=== PATIENT | female | born 1950 | race African-American/Black ===

== ENCOUNTER 2021-04-21 15:56 | Emergency (ER) | payer MEDICARE, MEDICAID ==
[~2021-04-21] VITALS: Ht 170.2 cm; Wt 102.1 kg
[2021-04-21] MEDS ORDERED: MYBETRIQ (16:04)
[2021-04-21] MEDS ORDERED: COZAAR 25 MG TA25 M1 PO (16:04)
[2021-04-21] MEDS ORDERED: COLACE100 MG PO (17:08)
[2021-04-21] MEDS ORDERED: TUCKS1 EAC1 TOP (17:08)
[2021-04-21] MEDS ORDERED: ANUSOL-HC25 MG RECTAL (17:08)
[2021-04-21 17:29] VITALS: BP 139/80
== END 2021-04-21 17:29 | disposition home or self-care (01) ==
LOC: M.ERS 15:56
DX: K64.4 Residual hemorrhoidal skin tags (principal); I10 Essential (primary) hypertension; Z98.890 Other specified postprocedural states; Z79.899 Other long term (current) drug therapy; Z88.0 Allergy status to penicillin; Z88.8 Allergy status to other drugs, medicaments and biological substances